=== PATIENT | female | born 1965 | race Caucasian/White ===

== ENCOUNTER 2022-02-10 15:23 | Inpatient (IN) | payer OTHER ==
[2022-02-10 17:00] VITALS: BMI 39.4
[2022-02-10] MEDS ORDERED: ONDANSETRON *ODT* 4 MG TABLET SL PRN (19:12)
[2022-02-10] MEDS ORDERED: MAGNESIUM CITRATE 300 ML BOTTLE PO PRN (19:12)
[2022-02-10] MEDS ORDERED: IBUPROFEN 600 MG TABLET (FP) PO PRN (19:12)
[2022-02-10] MEDS ORDERED: DICYCLOMINE HCL 10 MG CAPSULE PO PRN (19:12)
[2022-02-10] MEDS ORDERED: LOPERAMIDE HCL 2 MG CAPSULE PO PRN (19:12)
[2022-02-10] MEDS ORDERED: chlordiazePOXIDE HCL 25 MG CAPSULE PO PRN (19:12)
[2022-02-10] MEDS ORDERED: ACETAMINOPHEN 325 MG TABLET (FP) PO PRN ×2 (19:12)
[2022-02-10] MEDS ORDERED: BENZOCAINE/MENTHOL (CHLORASEPTIC ) LOZENGE MM PRN (19:12)
[2022-02-10] MEDS ORDERED: METHOCARBAMOL 500 MG TABLET PO PRN (19:12)
[2022-02-10] MEDS ORDERED: MAG HYDROX/AL HYDROX/SIMETH 30 ML UNIT-DOSE CUP PO PRN (19:12)
[2022-02-10] MEDS ORDERED: IBUPROFEN 400 MG TABLET (FP) PO PRN (19:12)
[2022-02-10] MEDS ORDERED: BISMUTH SUBSALICYLATE 524 MG/30 ML PO PRN (19:12)
[2022-02-10] MEDS ORDERED: MAGNESIUM HYDROX 2400MG/30ML ORAL SUSPENSION 30 ML CUP PO PRN (19:12)
[2022-02-10] MEDS ORDERED: MELATONIN 5 MG TABLETS PO SCH (22:00)
[2022-02-10] MEDS: FAMOTIDINE 20 MG TABLET PO SCH (22:58)
[2022-02-10] MEDS: PRENATAL VITAMINS W/ FOLIC ACID TABLET (FP) PO SCH (22:59)
[2022-02-10] MEDS: hydrOXYzine PAMOATE 25 MG CAPSULE (FP) PO SCH (22:59)
[2022-02-10] MEDS: DOCUSATE SODIUM 100 MG CAPSULE (FP) PO SCH (22:59)
[2022-02-10] MEDS: chlordiazePOXIDE HCL 25 MG CAPSULE PO SCH ×2 (22:59→23:24)
[2022-02-10] MEDS: THIAMINE HCL 100 MG TABLET (FP) PO SCH (23:00)
[2022-02-11] MEDS: RAMIPRIL 5 MG CAPSULE PO SCH ×2 (00:28→10:33)
[2022-02-11] MEDS: OMEGA-3 ACID ETHYL ESTERS (FATTY-ACIDS) 1 GM CAPSULE (FP) PO SCH ×3 (00:29→22:25)
[2022-02-11] MEDS: hydrOXYzine PAMOATE 25 MG CAPSULE (FP) PO SCH ×5 (06:13→22:25)
[2022-02-11] MEDS: chlordiazePOXIDE HCL 25 MG CAPSULE PO SCH ×3 (06:13→17:45)
[2022-02-11] MEDS: HYDROCHLOROTHIAZIDE 12.5 MG CAPSULE (FP) PO SCH (07:50)
[2022-02-11] MEDS: PRENATAL VITAMINS W/ FOLIC ACID TABLET (FP) PO SCH (10:35)
[2022-02-11] MEDS: DOCUSATE SODIUM 100 MG CAPSULE (FP) PO SCH (10:36)
[2022-02-11] MEDS: FAMOTIDINE 20 MG TABLET PO SCH (10:36)
[2022-02-11] MEDS: FLUoxetine HCL 20 MG CAPSULE PO SCH (10:36)
[2022-02-11 14:34] LABS: HEMATOCRIT 37.1 % (32.4-45.2); HEMOGLOBIN 12.3 GM/dL (10.7-15.3); MCH 29.2 pg (25.7-33.7); MCHC 33.1 g/dl (32.0-36.0); MEAN PLT VOLUME 7.8 fl (7.5-11.1); PLATELET COUNT 266 10^3/uL (134-434); RBC 4.21 M/mm3 (3.60-5.2); RDW 15.7 % (11.6-15.6); WHITE BLOOD COUNT 4.3 K/mm3 (4.0-10.0)
[2022-02-11 15:02] LABS: CALCIUM 8.7 mg/dL (8.5-10.1)
[2022-02-11 15:03] LABS: ALBUMIN 3.2 g/dl (3.4-5.0); BLOOD UREA NITROGEN 15.8 mg/dL (7-18)
[2022-02-11 15:06] LABS: CREATININE 0.8 mg/dL (0.55-1.3)
[2022-02-11 15:08] LABS: TOT PROT 6.4 g/dl (6.4-8.2)
[2022-02-11] MEDS: SIMETHICONE 80 MG TAB.CHEW (FP) PO PRN (22:25)
[2022-02-11] MEDS: SUVOREXANT 10 MG TABLET PO PRN (22:26)
[2022-02-11] MEDS: THIAMINE HCL 100 MG TABLET (FP) PO SCH (22:53)
[2022-02-12] MEDS: chlordiazePOXIDE HCL 25 MG CAPSULE PO SCH ×4 (05:54→22:35)
[2022-02-12] MEDS: hydrOXYzine PAMOATE 25 MG CAPSULE (FP) PO SCH ×5 (05:55→22:35)
[2022-02-12] MEDS: HYDROCHLOROTHIAZIDE 12.5 MG CAPSULE (FP) PO SCH (06:58)
[2022-02-12] MEDS: SIMETHICONE 80 MG TAB.CHEW (FP) PO PRN ×3 (10:34→22:36)
[2022-02-12] MEDS: FAMOTIDINE 20 MG TABLET PO SCH (10:35)
[2022-02-12] MEDS: FLUoxetine HCL 20 MG CAPSULE PO SCH (10:35)
[2022-02-12] MEDS: PRENATAL VITAMINS W/ FOLIC ACID TABLET (FP) PO SCH (10:35)
[2022-02-12] MEDS: DOCUSATE SODIUM 100 MG CAPSULE (FP) PO SCH (10:35)
[2022-02-12] MEDS: RAMIPRIL 5 MG CAPSULE PO SCH (10:37)
[2022-02-12] MEDS: OMEGA-3 ACID ETHYL ESTERS (FATTY-ACIDS) 1 GM CAPSULE (FP) PO SCH ×2 (12:10→22:35)
[2022-02-12] MEDS: THIAMINE HCL 100 MG TABLET (FP) PO SCH (22:35)
[2022-02-12] MEDS: SUVOREXANT 10 MG TABLET PO PRN (22:37)
[2022-02-13] MEDS ORDERED: chlordiazePOXIDE HCL 10 MG CAPSULE PO PRN
[2022-02-13] MEDS: hydrOXYzine PAMOATE 25 MG CAPSULE (FP) PO SCH ×5 (06:23→22:27)
[2022-02-13] MEDS: chlordiazePOXIDE HCL 10 MG CAPSULE PO SCH ×4 (06:23→22:27)
[2022-02-13] MEDS: HYDROCHLOROTHIAZIDE 12.5 MG CAPSULE (FP) PO SCH (06:23)
[2022-02-13] MEDS: NICOTINE 10 MG CARTRIDGE (INHALER) IH PRN ×3 (07:18→18:11)
[2022-02-13] MEDS: FLUoxetine HCL 20 MG CAPSULE PO SCH (10:13)
[2022-02-13] MEDS: DOCUSATE SODIUM 100 MG CAPSULE (FP) PO SCH (10:13)
[2022-02-13] MEDS: PRENATAL VITAMINS W/ FOLIC ACID TABLET (FP) PO SCH (10:13)
[2022-02-13] MEDS: FAMOTIDINE 20 MG TABLET PO SCH (10:13)
[2022-02-13] MEDS: OMEGA-3 ACID ETHYL ESTERS (FATTY-ACIDS) 1 GM CAPSULE (FP) PO SCH ×2 (10:14→22:27)
[2022-02-13] MEDS: RAMIPRIL 5 MG CAPSULE PO SCH (10:14)
[2022-02-13 22:15] VITALS: RESP 18
[2022-02-13] MEDS: SUVOREXANT 10 MG TABLET PO PRN (22:26)
[2022-02-13] MEDS: THIAMINE HCL 100 MG TABLET (FP) PO SCH (22:27)
[2022-02-14] MEDS ORDERED: chlordiazePOXIDE HCL 10 MG CAPSULE PO SCH (05:00)
[2022-02-14] MEDS: hydrOXYzine PAMOATE 25 MG CAPSULE (FP) PO SCH ×3 (05:35→14:28)
[2022-02-14] MEDS: NICOTINE 10 MG CARTRIDGE (INHALER) IH PRN (05:37)
[2022-02-14] MEDS: HYDROCHLOROTHIAZIDE 12.5 MG CAPSULE (FP) PO SCH (06:06)
[2022-02-14] MEDS: FLUoxetine HCL 20 MG CAPSULE PO SCH (10:10)
[2022-02-14] MEDS: PRENATAL VITAMINS W/ FOLIC ACID TABLET (FP) PO SCH (10:10)
[2022-02-14] MEDS: OMEGA-3 ACID ETHYL ESTERS (FATTY-ACIDS) 1 GM CAPSULE (FP) PO SCH (10:10)
[2022-02-14] MEDS: FAMOTIDINE 20 MG TABLET PO SCH (10:10)
[2022-02-14] MEDS: DOCUSATE SODIUM 100 MG CAPSULE (FP) PO SCH (10:10)
[2022-02-14] MEDS: RAMIPRIL 5 MG CAPSULE PO SCH (10:11)
[2022-02-14 13:41] VITALS: BP 109/59; PULSE 78; TEMP 98.1
[2022-02-15] MEDS ORDERED: chlordiazePOXIDE HCL 10 MG CAPSULE PO ONE (05:00)
== END 2022-02-14 14:30 | disposition home or self-care (01) | DRG 897 ==
LOC: YASAS 15:23 → Y3N 21:29
PROVIDERS: ADMIT Allergy & Immunology; ATTEND Surgery
PROC: HZ2ZZZZ Detoxification Services for Substance Abuse Treatment (ICD-10-PCS; principal; 2022-02-10)
DX: F10.230 Alcohol dependence with withdrawal, uncomplicated (principal); F41.9 Anxiety disorder, unspecified; F32.A Depression, unspecified; F43.10 Post-traumatic stress disorder, unspecified; I10 Essential (primary) hypertension; E78.5 Hyperlipidemia, unspecified; Z87.891 Personal history of nicotine dependence; Z90.710 Acquired absence of both cervix and uterus; Z98.84 Bariatric surgery status; Z56.0 Unemployment, unspecified
CPT/HCPCS: 36415; 80053; 85027; 86780; 87811; C9803-CS; U0003; U0005